=== PATIENT | female | born 1945 | race Caucasian/White ===

== ENCOUNTER 2021-06-15 11:53 | Day surgery (SDC) | payer MEDICARE ==
[~2021-06-15] VITALS: Ht 170.2 cm; Wt 73.6 kg
--- NOTE | ~2021-06-15 | OR ---
[facility] [address], [place] [address] Draft DATE OF OPERATION: 06/15/2021 SURGEON: Anjel Graf MD PREOPERATIVE DIAGNOSIS: Occasional rectal bleeding. No family history of colon cancer. POSTOPERATIVE DIAGNOSIS: Sigmoid diverticulosis. PROCEDURE: Total colonoscopy to the cecum. ANESTHESIA: Intravenous sedation; fentanyl 100 mcg and Versed 3 mg. INDICATION: This 76-year-old white woman is a patient Dr. Sonia Ward. She is noted to have occasional minimal amounts of bright red rectal bleeding and constipation and occasional pain on defecation. She has had no symptoms recently. She has no family history of colon cancer. She did undergo colonoscopy in the distant past. She has undergone bilateral hip replacement. She is admitted at this time to undergo colonoscopy. She understands the risks of bleeding, infection, and perforation. FINDINGS: She had an excellent prep. Complete colonoscopy was undertaken to the cecum without question with intubation of cecum fully. She had diverticula of the sigmoid colon and there was no sign of stricture. She had no polyps or colitis. DESCRIPTION OF PROCEDURE: The patient was brought to the endoscopy suite and given preoperative antibiotic Ancef 2 g IV. With full cardiopulmonary monitoring, she was given intravenous sedation to the point of slurred speech and nystagmus with full cardiopulmonary monitoring throughout. She was noted to have episodic desaturations to the high 80s with function suggestive though not diagnostic of sleep apnea type problems. In any case, an Olympus video colonoscope was passed in the rectum after normal digital rectal examination. The scope was manipulated through the colon noting diverticula of the sigmoid and left colon. The scope was ultimately advanced to the cecum. The ileocecal valve and appendiceal orifice were normal. The scope was withdrawn from that point and examination throughout showed no sign of abnormality into the left colon where diverticula were once again seen. They PATIENT NAME: CLAUS BLACKWELL OPERATIVE REPORT DATE OF : 49 REPORT #: [id number] PHYSICIAN: ANJEL GRAF MD PCP: SONIA WARD MD REPORT IS CONFIDENTIAL AND NOT TO BE RELEASED WITHOUT AUTHORIZATION [facility] [address], [place] [address] Draft were most dominantly noted in the sigmoid. Upon withdrawal of the rectum, retroflexed view was undertaken showing no sign of fissure or hemorrhoidal problem at this time. The scope was removed and the patient was taken to the recovery room in good condition. CONCLUDING DIAGNOSIS: Diverticula. PLAN: Recommend high-fiber diet. Consider repeat colonoscopy in 10 years if clinically appropriate despite her advanced age. She will return to the ongoing care of Dr. Ward. MD VANESSA Pedroza/MODL /[id number] cc: Sonia Ward MD Copies: ~ PATIENT NAME: CLAUS BLACKWELL OPERATIVE REPORT DATE OF : 49 REPORT #: [id number] PHYSICIAN: ANJEL GRAF MD PCP: SONIA WARD MD REPORT IS CONFIDENTIAL AND NOT TO BE RELEASED WITHOUT AUTHORIZATION
[~2021-06-15 11:53] MED LIST: COZAAR50 MG PO; DOXYCYCLINE HY100 MG PO; DRIZALMA SPRINK30 MG PO; ESTRACE0.5 MG PO; FLUOXETINE HCL20 M1 PO; HYDROCHLOROTH12.5 MG PO; KLOR-CON M2020 MEQ PO; LOVASTATIN40 MG PO; METOPROLOL SUCC25 MG PO; METOPROLOL TART25 MG PO; NEURONTIN300 MG PO; NORCO 5-325 TA1 EACH PO; NORVASC2.5 MG PO; OCUFLOX5 ML OPTH; OMEPRAZOLE20 MG PO; PREDNISOLONE ACE5 ML OPTH; PROVERA2.5 MG PO; ROSUVASTATIN CA20 MG PO; TYLENOL WITH C1 EACH PO
--- NOTE | 2021-06-15 14:11 | NUR ---
06/15/21 1411 Emi Mandel 1353 PATIENT ARRIVES TO PACU AWAKE BUT DROWSY. RESP EVEN AND UNLABORED, ROOM AIR SATS >90%. DENIES PAIN OR NAUSEA. REPOSITIONS SELF TO BACK. 1400 PATIENT AWAKE BUT DROWSY. SLEEPING WHEN NOT STIMULATED. RESP EVEN AND UNLABORED, ROOM AIR SATS .90%.PATIENT NEEDS OCCASIONAL REMINDER TO TAKE A DEEP BREATH. DENIES PAIN OR NAUSEA.
== END 2021-06-15 14:40 | disposition home or self-care (01) ==
LOC: DS 11:53 → OPS 11:53 → DS 11:57 → OPS 13:00 → DS 14:00 → OPS 14:40
PROVIDERS: ATTEND Surgery
PROC: 0DJD8ZZ Inspection of Lower Intestinal Tract, Via Natural or Artificial Opening Endoscopic (ICD-10-PCS; principal; 2021-06-15 13:00)
DX: K57.31 Diverticulosis of large intestine without perforation or abscess with bleeding (principal); I10 Essential (primary) hypertension; K21.9 Gastro-esophageal reflux disease without esophagitis; Z96.643 Presence of artificial hip joint, bilateral; K59.00 Constipation, unspecified
CPT/HCPCS: J0690; J2250; J3010; J7121